=== PATIENT | male | born 1995 | race Caucasian/White ===

== ENCOUNTER 2025-07-28 07:49 | Emergency (ER) | payer BC, OTHER ==
[~2025-07-28] VITALS: Ht 185.4 cm; Wt 72.2 kg
[~2025-07-28 07:49] MED LIST: AMOX TR-K CLV1 EAC2 PO
[2025-07-28 07:50] VITALS: PULSE 89; RESP 18; TEMP 98.3; O2SAT 100
[2025-07-28] MEDS ORDERED: CEPHALEXIN500 MG PO (08:08)
== END 2025-07-28 08:20 | disposition home or self-care (01) ==
LOC: FSED 07:56
DX: L03.312 Cellulitis of back [any part except buttock and flank] (principal); B19.20 Unspecified viral hepatitis C without hepatic coma; F43.10 Post-traumatic stress disorder, unspecified
CPT/HCPCS: 99284